=== PATIENT | male | born 1955 | race Caucasian/White ===

== ENCOUNTER → 2018-12-21 11:34 | Outpatient (CLI) | payer SELFPAY ==
[2014-05-11 07:48] VITALS: BMI 26.9
--- NOTE | 2018-12-21 11:40 | RAD_ITS ---
HISTORY: Pain EXAM:XR Chest 2 Views: COMPARISON: None FINDINGS: Normal heart size. Hyperinflation compatible with COPD and upper lobe emphysema, more so on the right no vascular congestion, pleural effusion, or acute pulmonary infiltration. Atherosclerotic thoracic aorta. No pneumothorax. Senescent changes of the dorsal spine RAD/Chest PA and Lateral IMPRESSION: 1. No acute cardiopulmonary disease. 2. COPD and emphysema. at 0342 Reported and signed by: Nawaf Miller MD Electronically Signed: Nawaf Miller, at 3:41 EST Tel , Service support ,
[2018-12-21 14:05] LABS: Hematocrit 43.6 % (40-54); Hemoglobin 14.3 g/dl (13.0-16.5); Mean Corp Hgb Conc 32.8 g/gl (32-36); Mean Corpuscular Hgb 31.2 pg (27.0-32.0); Mean Corpuscular Volume 95.2 fL (80-94); Mean Platelet Vol. 10.6 fl (6.2-12.0); Platelet Count 189 K/mm3 (150-450); RBC Distribution Width CV 13.6 % (11.6-14.6); RBC Distribution Width SD 45.7 fl (35.1-43.9); Red Blood Count 4.58 M/mm3 (4.6-6.2); White Blood Count 4.2 K/mm3 (4.4-11.0)
[2018-12-21 14:07] LABS: Scan Indicated on CBC? Y/N NO
[2018-12-21 14:22] LABS: Anion Gap 4 (5-15); BUN 14 mg/dL (7-18); BUN/Creat Ratio 13.3 RATIO (10-20); Calcium,Total 8.6 mg/dL (8.5-10.1); Chloride 108 mmol/L (98-107); Creatinine, Serum 1.05 mg/dL (0.70-1.30); EST Glomerular Filtration Rate 76 mL/min (>60); Est Glom Filt Rate - Afr Amer 92 mL/min (>60); Glucose 89 mg/dL (74-106); PSA,Total - Annual Screen 0.14 ng/mL (0.00-4.00); Potassium 4.4 mmol/L (3.5-5.1); Sodium Level 140 mmol/L (136-145)
--- OUTSIDE RECORDS SUMMARY | 2019-02-22 15:33 | XMS RPT_ITS ---
:1955 Author Organization OHIP Care Team Providers Name Role Phone YANG FLORES (SENIOR CATERING SALES MANAGER) Referring Unavailable YANG FLORES (CRESCENCIO) Attending Unavailable YANG FLORES (CRESCENCIO) Referring Unavailable Uziel Mtz Attending Unavailable Uziel Mtz Referring Unavailable Uziel Mtz Primary Care Unavailable PROBLEMS PROBLEMS DATE TYPE CONDITION / CODE ATTENDING STATUS SOURCE 12/21/2018 Unknown 786.50 - Chest Ranney, Active [place] pain, unspecified [facility] / 786.50(ICD-9) Hospital Repository 12/21/2018 Unknown R07.9 - Chest Ranney, Active [place] pain, unspecified [facility] / R07.9(ICD-10) Hospital Repository 01/15/2016 Active Other lymphoid NA Active [facility] leukemia not [facility] [place] having achieved Repository remission / C91.Z0(ICD-10) PROCEDURES PROCEDURES No Procedure Records FoundRESULTS RESULTS CBC-COMPLETE BLOOD CNT Collected: 12/21/2018 Status: F Source: [place] NO DIFF 11:45 AM [facility] REPOSITORY TYPE CODE TESTS RESULT OUT OF RANGE REFERENCE UNITS LAB L100.1000 4.4-11.0 K/mm3 Low WBC 4.2 LAB L100.1200 4.6-6.2 M/mm3 Low RBC 4.58 LAB L100.1300 13.0-16.5 g/dl Normal HGB 14.3 LAB L100.1400 40-54 % Normal HCT 43.6 LAB L100.1500 80-94 fL High MCV 95.2 LAB L100.1600 27.0-32.0 pg Normal MCH 31.2 LAB L100.1700 32-36 g/gl Normal MCHC 32.8 LAB L100.1810 11.6-14.6 % Normal RDW CV 13.6 LAB L100.1820 35.1-43.9 fl High RDW SD 45.7 LAB L100.1900 150-450 K/mm3 Normal PLT 189 LAB L100.2000 6.2-12.0 fl Normal MPV 10.6 Performed By: #### L100.0500, L500.2500 #### [facility] [address] [place], [place], [id number] BASIC METABOLIC Collected: 12/21/2018 Status: F Source: [place] PROFILE (BMP) 11:45 AM [facility] REPOSITORY TYPE CODE TESTS RESULT OUT OF RANGE REFERENCE UNITS LAB L501.0100 74-106 mg/dL Normal GLU 89 Result Comment: Please note revised GLUCOSE reference range effective 2018. LAB L501.1000 7-18 mg/dL Normal BUN 14 LAB L501.1100 0.70-1.30 mg/dL Normal CREAT,SERUM 1.05 Result Comment: The validity of the calculated GFR AND GFRAA in patients over 70 years has not been determined. Clinical correlation is essential. LAB L501.1110 >60 mL/min Normal EST GFR 76 Result Comment: Non- GFR Calc LAB L501.1115 >60 mL/min Normal EST GFR - AA 92 Result Comment: GFR Calc LAB L501.1300 10-20 RATIO Normal BUN/CRE 13.3 LAB L501.2200 8.5-10.1 mg/dL CA Normal 8.6 LAB L501.5300 136-145 mmol/L NA Normal 140 LAB L501.5600 3.5-5.1 mmol/L K Normal 4.4 LAB L501.5900 98-107 mmol/L High CL 108 LAB L501.6100 21.0-32.0 mmol/L Normal CO2 28.0 LAB L501.6200 5-15 Low GAP 4 Performed By: #### L100.0500, L500.2500 #### [facility] [address] [place], [place], [address] PSA,TOTAL - ANNUAL Collected: 12/21/2018 Status: F Source: [place] SCREEN 11:45 AM [facility] REPOSITORY TYPE CODE TESTS RESULT OUT OF RANGE REFERENCE UNITS LAB L501.9910 0.00-4.00 ng/mL Normal PSA,TOT 0.14 SCREEN Result Comment: This test was performed using the TPSA assay method for the KLab chemistry system. Values obtained with different assay methods cannot be used interchangably. When changing PSA assays in the course of monitoring a patient, additional sequential testing should be carried out to confirm baseline values. Performed By: #### L501.9910 #### [facility] [address] [place], [address] CHEST PA AND LATERAL Observed: 12/21/2018 Status: F Source: [place] 11:40 AM [facility] REPOSITORY [facility] Imaging Services [address] [place] [address] Chest PA and Lateral MR#: [id number] Acct: [id number] Name: JESSIKA MIRAMONTES Rep #: [id number] : 1955 M 63 From: Nawaf Miller MD PCP: Uziel Mtz MD Status: REG CLI Study: Chest PA and Lateral Date of Exam: 12/21/18 Exam# [id number] Ordering Dr: Obed Mtz MD HISTORY: Pain EXAM:XR Chest 2 Views: COMPARISON: None FINDINGS: Normal heart size. Hyperinflation compatible with COPD and upper lobe emphysema, more so on the right no vascular congestion, pleural effusion, or acute pulmonary infiltration. Atherosclerotic thoracic aorta. No pneumothorax. Senescent changes of the dorsal spine RAD/Chest PA and Lateral IMPRESSION: 1. No acute cardiopulmonary disease. 2. COPD and emphysema. at 0342 Reported and signed by: Nawaf Miller MD Electronically Signed: Nawaf Miller, at 3:41 EST Tel , Service support , CC: Uziel Mtz MD Field Care Advocate: Signed PROGRESS Observed: 02/18/2018 Status: COMPLETED Source: [place] 12:11 PM [facility] REPOSITORY HNO ID: [id number] Author: Yang Hodge) MARCELLO Flores.CRESCENCIO Service: (none) Author Type: Nurse Practitioner Type: Progress Notes Filed: 02/18/2018 12:56 PM Note Text: Chief Complaint Patient presents with: Established Patient HPI: Jessika Miramontes is a 62 year old male who presents here today for follow up indolent NK-cell LGL leukemia. H/o pt. was evaluated for unexplained anemia and mild neutropenia in 2007. Flow cytometry of the bone marrow identified a population of NK cells. Because of this and the other workup excluding other causes, the patient was deemed to have an LGL leukemia. ?? Previous therapy: Parenteral iron. None for LGL. ? No complaints. ?? Appetite:too good Energy level:pretty good. Denies fever, chills or night sweats. Denies recent illness. Resp:denies cough/sob Cardiac:denies chest pain/palpitations GI:denies abd pain, n/v, moving bowels regularly :denies dysuria/hematuria Extrem:denies pain my back is fantastic. Neuro:3 toes numb s/p back surgery-stable. Skin:denies rashes/lesions Heme:denies bleeding The ROS is otherwise negative. Past medical history, appointments, medications, allergies reviewed. No changes. EXAM: BP 147/74 Pulse 96 Temp 36.3 ?C (97.4 ?F) Wt 83.9 kg (185 lb) BMI 26.54 kg/m2 APPEARANCE Well appearing, alert, in no acute distress, well-hydrated, well nourished. HEART RRR with normal S1 and S2, no murmurs LUNG clear to auscultation LYMPH NODES No cervical lymphadenopathy, No supraclavicular lymphadenopathy and No axillary lymphadenopathy. ABDOMEN bowel sounds normoactive, no bruits, soft, non-tender, non-distended, without organomegaly or palpable masses EXTREMITIES No edema NEURO Awake, alert and oriented x 3, Normal gait and No involuntary motions. SKIN Skin color, texture, turgor normal, no suspicious rashes or lesions LABS: Component Latest Ref Rng AND Units 07/18/2015 01/15/2016 01/20/2017 02/16/2018 WBC, [place] 3.70 - 11.00 k/uL 4.69 4.53 4.55 4.45 RBC, [place] 4.20 - 6.00 m/uL 4.40 4.18 (L) 4.18 (L) 4.22 Hemoglobin, [place] 13.0 - 17.0 g/dL 13.9 13.3 13.4 13.5 Hematocrit, [place] 39.0 - 51.0 % 41.2 39.9 39.9 40.4 MCV, [place] 80.0 - 100.0 fL 93.6 95.5 95.5 95.7 MCH, [place] 26.0 - 34.0 pg 31.6 31.8 32.1 32.0 MCHC, [place] 30.5 - 36.0 g/dL 33.7 33.3 33.6 33.4 RDW, [place] 11.5 - 15.0 % 13.6 13.6 13.3 13.6 Platelet Cnt, [place] 150 - 400 k/uL 173 175 180 214 MPV, [place] 9.0 - 12.7 fL 9.5 10.0 10.2 9.7 Neut%, [place] % 43.5 44.1 40.6 42.2 Lymp%, [place] % 43.5 41.1 46.2 43.4 Pocahontas%, [place] % 10.0 11.5 10.3 12.4 Eos%, [place] % 2.6 2.9 2.2 1.3 Baso%, [place] % 0.4 0.4 0.7 0.7 Abs Neut, [place] 1.45 - 7.50 k/uL 2.04 2.00 1.85 1.88 Abs Lymp, [place] 1.00 - 4.00 k/uL 2.04 1.86 2.10 1.93 Abs Pocahontas, [place] <0.87 k/uL 0.47 0.52 0.47 0.55 Abs Eos, [place] <0.46 k/uL 0.12 0.13 0.10 0.06 Abs Baso, [place] <0.11 k/uL 0.02 0.02 0.03 0.03 ASSESSMENT/PLAN: 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 - Reviewed labs with pt. - Follow up in one year with CBC/diff. - Pt. aware to call office with any questions/concerns. The patient indicates understanding of these issues and agrees with the plan. [place] Nilsa Flores APRN.CNP CNOVSP Observed: 02/18/2018 Status: COMPLETED Source: [place] 12:[address] [facility] REPOSITORY Visit (SP) Office (SONNY) JESSIKA MIRAMONTES ([id number]) 1955 M Date Time Provider Department 02/18/18 12:00 PM YANG FLORES (CRESCENCIO) SONNY During your visit today, we recorded the following information about you: Temperature Pulse Blood pressure Weight 97.4 degrees 96/minute 147/74 83.9 kg Amanda Platt LPN, LPN 02/18/2018 12:20 PM Signed Est pt, discuss recent lab results 1 year f/u DEV Stubbs APRN.SHENG PRATHER 02/18/2018 12:56 PM Signed Chief Complaint Patient presents with: Established Patient HPI: Jessika Miramontes is a 62 year old male who presents here today for follow up indolent NK-cell LGL leukemia. H/o pt. was evaluated for unexplained anemia and mild neutropenia in 2007. Flow cytometry of the bone marrow identified a population of NK cells. Because of this and the other workup excluding other causes, the patient was deemed to have an LGL leukemia. ?? Previous therapy: Parenteral iron. None for LGL. ? No complaints. ?? Appetite:ANDquot;too goodANDquot; Energy level:ANDquot;pretty good.ANDquot; Denies fever, chills or night sweats. Denies recent illness. Resp:denies cough/sob Cardiac:denies chest pain/palpitations GI:denies abd pain, n/v, moving bowels regularly :denies dysuria/hematuria Extrem:denies pain ANDquot;my back is fantastic.ANDquot; Neuro:3 toes numb s/p back surgery-stable. Skin:denies rashes/lesions Heme:denies bleeding The ROS is otherwise negative. Past medical history, appointments, medications, allergies reviewed. No changes. EXAM: BP 147/74 Pulse 96 Temp 36.3 ?C (97.4 ?F) Wt 83.9 kg (185 lb) BMI 26.54 kg/m2 APPEARANCE Well appearing, alert, in no acute distress, well- hydrated, well nourished. HEART RRR with normal S1 and S2, no murmurs LUNG clear to auscultation LYMPH NODES No cervical lymphadenopathy, No supraclavicular lymphadenopathy and No axillary lymphadenopathy. ABDOMEN bowel sounds normoactive, no bruits, soft, non-tender, non-distended, without organomegaly or palpable masses EXTREMITIES No edema NEURO Awake, alert and oriented x 3, Normal gait and No involuntary motions. SKIN Skin color, texture, turgor normal, no suspicious rashes or lesions LABS: Component Latest Ref Rng ANDamp; Units 07/18/2015 01/15/2016 01/20/2017 02/16/2018 WBC, [place] 3.70 - 11.00 k/uL 4.69 4.53 4.55 4.45 RBC, [place] 4.20 - 6.00 m/uL 4.40 4.18 (L) 4.18 (L) 4.22 Hemoglobin, [place] 13.0 - 17.0 g/dL 13.9 13.3 13.4 13.5 Hematocrit, [place] 39.0 - 51.0 % 41.2 39.9 39.9 40.4 MCV, [place] 80.0 - 100.0 fL 93.6 95.5 95.5 95.7 MCH, [place] 26.0 - 34.0 pg 31.6 31.8 32.1 32.0 MCHC, [place] 30.5 - 36.0 g/dL 33.7 33.3 33.6 33.4 RDW, [place] 11.5 - 15.0 % 13.6 13.6 13.3 13.6 Platelet Cnt, [place] 150 - 400 k/uL 173 175 180 214 MPV, [place] 9.0 - 12.7 fL 9.5 10.0 10.2 9.7 Neut%, [place] % 43.5 44.1 40.6 42.2 Lymp%, [place] % 43.5 41.1 46.2 43.4 Pocahontas%, [place] % 10.0 11.5 10.3 12.4 Eos%, [place] % 2.6 2.9 2.2 1.3 Baso%, [place] % 0.4 0.4 0.7 0.7 Abs Neut, [place] 1.45 - 7.50 k/uL 2.04 2.00 1.85 1.88 Abs Lymp, [place] 1.00 - 4.00 k/uL 2.04 1.86 2.10 1.93 Abs Pocahontas, [place] ANDlt;0.87 k/uL 0.47 0.52 0.47 0.55 Abs Eos, [place] ANDlt;0.46 k/uL 0.12 0.13 0.10 0.06 Abs Baso, [place] ANDlt;0.11 k/uL 0.02 0.02 0.03 0.03 ASSESSMENT/PLAN: 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 - Reviewed labs with pt. - Follow up in one year with CBC/diff. - Pt. aware to call office with any questions/concerns. The patient indicates understanding of these issues and agrees with the plan. Yang Flores APRN.CRESCENCIO Referring Provider: YANG FLORES ([facility]) [[id number]] Allergies As of Date: 02/18/2018 (No Known Allergies) Date Reviewed: 02/18/2018 Reviewed by: Yang ([facility]) MARCELLO Flores.SENIOR CATERING SALES MANAGER - Fully Assessed Reason for Visit: Established Patient [175] Primary Visit Diagnosis:Large granular lymphocytic leukemia (HCC) [C91.Z0] Follow-up and Disposition History Recorded Prescriptions as of 02/18/2018 Sig: IBUPROFEN 200 MG TABLET Take 600 mg by mouth as neede* * THERAPEUTIC MULTIVITAMIN TABL* Take one(1) tablet daily. Medication notes this encounter [id number] ([facility]) >> Amanda Platt LPN, LPN 02/18/2018 12:10 PM >> AMANDA PLATT Feb 18, 2018 12:10 PM Hasn't used in along time Problem List As Of Date 02/18/2018 Noted Resolved ANEMIA NOS [D64.9] INVALID FOR* LARGE CELL LYMPH XTRNDL [C85.89] INVALID FOR* DYSPHAGIA NOS [R13.10] INVALID FOR* IRON DEFIC ANEMIA NOS [D50.9] INVALID FOR* Large granular lymphocytic leukemia (HCC) [C91.*INVALID FOR* Anemia [D64.9] Family history of colon cancer [Z80.0] INVALID FOR*08/14/2016 Visit Notes: >> Amanda Burleson (Dev) DEV Platt Michelle Feb 18, 2018 12:11 PM Status: Signed Est pt, discuss recent lab results 1 year f/u Amanda Platt LPN Encounter Status:Closed by YANG FLORES CNP on 02/18/18 [place] CBC AND DIFF Collected: 02/16/2018 Status: F Source: [place] 10:20 AM [facility] REPOSITORY TYPE CODE TESTS RESULT OUT OF REFERENCE UNITS RANGE LAB WWBC 3.70-11.00 k/uL [place] WBC 4.45 LAB WRBC 4.20-6.00 m/uL [place] RBC 4.22 LAB WHGB 13.0-17.0 g/dL [place] Hemoglobin 13.5 LAB WHCT 39.0-51.0 % [place] Hematocrit 40.4 LAB WMCV 80.0-100.0 fL [place] MCV 95.7 LAB WMCH 26.0-34.0 pg [place] MCH 32.0 LAB WMCHC 30.5-36.0 g/dL [place] MCHC 33.4 LAB WRDW 11.5-15.0 % [place] RDW 13.6 LAB WPLT 150-400 k/uL [place] Platelet Cnt 214 LAB WMPV 9.0-12.7 fL [place] MPV 9.7 Result Comment: Test performed at: [facility] [place], [address], [address] [facility] [address] [place] [address]. LAB WNEUT % [place] Neut% 42.2 LAB WLYMP % [place] Lymp% 43.4 LAB WMONOC % [place] Pocahontas% 12.4 LAB WEOS % [place] Eos% 1.3 LAB WBASO % [place] Baso% 0.7 LAB WANEUT 1.45-7.50 k/uL [place] Abs Neut 1.88 LAB WALYMP 1.00-4.00 k/uL [place] Abs Lymp 1.93 LAB WAMONO <0.87 k/uL [place] Abs Pocahontas 0.55 LAB WAEOS <0.46 k/uL [place] Abs Eos 0.06 LAB WABASO <0.11 k/uL [place] Abs Baso 0.03 ALLERGIES ALLERGIES DATE TYPE / CODE NAME / CODE REACTION SEVERITY SOURCE 05/09/2014 Drug No Known Unknown [facility] Allergy/416 Allergies/H46995 Hospital 188245(SNOM 0388(RXNORM) Repository ED CT) Drug NO KNOWN [facility] Class/72798 ALLERGIES [facility] 1003(SNOMED Repository CT) ENCOUNTERS ENCOUNTERS ADMIT/DISCHARGE ACCOUNT ADMITTING ENCOUNTER LOCATION SOURCE NUMBER CLASS 12/21/2018 [id number] [facility] ing:MTLAB Repository 02/18/2018/02/20/20 [id number] Ambulatory [address] [facility] [place] Repository 02/16/2018 [id number] Ambulatory [facility] Repository PAYERS PAYERS ENCOUNTER GUARANTOR PAYER SUBSCRIBER SOURCE 12/21/2018 [id number] Insurance:SELF PAY [place], [place] Number: Effective Repository [phone]: 330) Date:2018-12-21 [phone] ()
== END ==
PROVIDERS: Family Provider Family Medicine; PCP Family Medicine; Referring Provider Family Medicine; Visit Provider Family Medicine
DX: R07.9 Chest pain, unspecified (principal); Z12.5 Encounter for screening for malignant neoplasm of prostate
CPT/HCPCS: 36415; 71046; 80048; 84153; 85027; G0103

== ENCOUNTER → 2020-02-09 10:46 | Outpatient (CLI) | payer SELFPAY ==
[2014-05-11 07:48] VITALS: BMI 26.9
[2020-02-09 13:04] LABS: PSA,Total - Annual Screen 0.15 ng/mL (0.00-4.00)
== END ==
PROVIDERS: PCP Family Medicine; Referring Provider Urology; Visit Provider Urology
DX: Z12.5 Encounter for screening for malignant neoplasm of prostate (principal)
CPT/HCPCS: 36415; 84153; G0103

== ENCOUNTER → 2020-02-15 16:37 | Outpatient (CLI) | payer SELFPAY ==
[2014-05-11 07:48] VITALS: BMI 26.9
[2020-02-15 17:36] LABS: Hematocrit 40.4 % (40-54); Hemoglobin 13.4 g/dL (13.0-16.5); Mean Corp Hgb Conc 33.2 g/dL (32-36); Mean Corpuscular Hgb 32.1 pg (27.0-32.0); Mean Corpuscular Volume 96.9 fL (80-94); Mean Platelet Vol. 10.9 fl (6.2-12.0); Platelet Count 173 K/mm3 (150-450); RBC Distribution Width CV 13.2 % (11.6-14.6); RBC Distribution Width SD 46.7 fl (35.1-43.9); Red Blood Count 4.17 M/mm3 (4.6-6.2)
[2020-02-15 18:01] LABS: Anion Gap 4 (5-15); BUN 21 mg/dL (7-18); BUN/Creat Ratio 19.1 RATIO (10-20); Calcium,Total 8.4 mg/dL (8.5-10.1); Chloride 106 mmol/L (98-107); EST Glomerular Filtration Rate 72 mL/min (>60); Est Glom Filt Rate - Afr Amer 87 mL/min (>60); Glucose 85 mg/dL (74-106); Magnesium 2.1 mg/dL (1.6-2.6); Sodium Level 138 mmol/L (136-145); Thyroid Stim Hormone (TSH) 2.16 uIU/mL (0.358-3.74)
== END ==
PROVIDERS: PCP Family Medicine; Referring Provider Family Medicine; Visit Provider Family Medicine
DX: R00.2 Palpitations (principal)
CPT/HCPCS: 36415; 80048; 83735; 84443; 85027

== ENCOUNTER → 2021-02-19 10:20 | Outpatient (CLI) | payer MEDICARE, SELFPAY ==
[2014-05-11 07:48] VITALS: BMI 26.9
[2021-02-19 12:16] LABS: PSA,Total - Annual Screen 0.14 ng/mL (0.00-4.00)
== END ==
PROVIDERS: PCP Family Medicine; Referring Provider Urology; Visit Provider Urology
DX: Z12.5 Encounter for screening for malignant neoplasm of prostate (principal)
CPT/HCPCS: 36415; 84153; G0103

== ENCOUNTER 2021-08-27 17:35 | Outpatient (CLI) | payer MEDICARE, SELFPAY ==
[2021-08-27 18:01] VITALS: BP 148/61; PULSE 92; RESP 16; TEMP 36.8; O2SAT 97; BMI 26.5
[2021-08-27] MEDS: 0.9% Saline Lock 10 ML Syringe IV (18:06)
[2021-08-27 18:50] VITALS: BP 126/61; PULSE 75; RESP 16; TEMP 37; O2SAT 98
[2021-08-27 19:50] VITALS: BP 119/61; PULSE 84; RESP 16; TEMP 36.7; O2SAT 98
== END 2021-08-27 19:56 | disposition home or self-care (01) ==
LOC: MS3OUT 17:36 → MS3 17:37
PROVIDERS: PCP Family Medicine; Referring Provider Nurse Practitioner Adult Health; Visit Provider Nurse Practitioner Adult Health
DX: Z23 Encounter for immunization (principal); U07.1 COVID-19
CPT/HCPCS: J7050; M0243; A4216; Q0244

== ENCOUNTER 2022-01-07 08:47 | Day surgery (SDC) | payer MEDICARE, SELFPAY ==
[2022-01-07] VITALS (7 sets, daily range): BP systolic 102–132; BP diastolic 60–75; PULSE 57–74; RESP 16; TEMP 36.2–36.7; O2SAT 97–100; BMI 25.5
[2022-01-07] MEDS: Lactated Ringers 1,000 ML 15 ML IV (09:16)
--- NOTE | 2022-01-07 09:55 | H&P.OPEN ---
HPI - General HPI Narrative BRADY MIRAMONTES, is a 66 M who presents for surveillance colonoscopy. Patient has a history of colon cancer in his sister at age under 60. Patient also has a history of colon polyps. Patient denies any abdominal pain or blood in stool. His last colonoscopy was 5 years ago. [facility] Medical History (Updated 01/07/22 @ 09:[address] Dalton Morton MD) Anemia Back pain Easy bruising History of renal disease History of rheumatic fever History of stress test Hx of mitral valve prolapse Leg cramps Non-smoker Wears glasses Home Medications cholecalciferol (vitamin D3) [Vitamin D3] 25 mcg PO DAILY 01/02/22 [History Last Taken Unknown] multivitamin 1 cap PO DAILY 01/02/22 [History Last Taken Unknown] zinc 50 mg PO DAILY 01/02/22 [History Last Taken Unknown] Allergy/AdvReac Type Severity Reaction Status Date / Time No Known Allergies Allergy Verified 01/07/22 09:04 Surgical History (Updated 01/02/22 @ 12:50 by Zahra Pgua) History of cystoscopy History of nasal surgery Hx of decompressive lumbar laminectomy Social History Smoking Status: Never smoker Past Medical/Surgical History Planned Operation Planned Operative Procedure/s: OPEN ACCESS CSCOPE S.O.S: No Previous Hospitalizations/Surgeries HX Hospitalizations: No HX of Surgeries: bladder resection back surgery Any Problems With Anesthesia: No You/Your Family Experience Fever (Hyperthermia) With Anes: No Cholinesterase deficiency: No Cardiovascular Hx Chest Pain within Last 2 months: No Hx of Irregular Heartbeat and/or Afib: Yes Hx Heart Attack: No Hx Congestive Heart Failure: No Hx Rheumatic Fever: No Hx Hypertension: No Hx Internal Defibrillator: No Hx Pacemaker: No Hx Cardiac Catheterization: No Hx Cardiac Surgery/Stents/Etc.: No Hx Stress Test: No Hx Pain in Legs when Walking/Leg Cramps: No Respiratory Chronic Cough: No HX of Shortness of Breath: No Hoarseness: No Hx Chronic Obstructive Pulmonary Disease (COPD): No Hx Asthma: No Hx Emphysema: No Hx Sleep Apnea: No CPAP: No BIPAP: No Hx Respiratory Tract Infection/Cold (presently): No Do You Snore Loudly (louder than talking or can be heard): Yes Do You Often Feel Tired/ Fatigued/ Sleepy Dring Daytime?: No Has Anyone Observed You Stop Breathing During Sleep?: No Result (for STOP score): Negative Hx Smoking: No Smoking Status: Never smoker Gastrointestinal Hx Gastroesophageal Reflux: No Hx Gastrointestinal Disorders: No Hx Gastrointestinal Bleed: No Hx Ulcer: No Hx Hiatal Hernia: No Difficulty Chewing/Swallowing: No Special diet followed at home: No Hx Unplanned Weight Loss of 20#: No HX Unplanned Weight Gain of 20#: No Neurological Hx Seizures: No HX Syncope/Blackout Spells/Unconsciousness: No Hx Transient Ischemic Attacks (TIA): No Hx Multiple Sclerosis: No Hx Parkinson's Disease: No Hx Head/Neck Injury: No Hx Headaches: No Hx Back Injury/Pain: Yes (LOWER BACK PAIN- NONE TODAY) Recent Onset of Speech Difficulty: No Restless Legs: No Does patient have nerve stimulator: No Blood Disorder Hx Leukemia: No Bleeding Tendencies: No Hx Deep Vein Thrombosis: No Hx High Cholesterol: No Blood Transmitted Disease: No Hx Hepatitis: No Hx Cirrhosis: No Hx Anemia: Yes (BORDERLINE- SAW DR GASCA- WAS ON IRON) Hx Blood Disorders: No Reproduction : No Genitourinary Hx Renal Disease: No Hx Dialysis: No Musculoskeletal Hx Arthritis: No Hx Rheumatoid Arthritis: No Hx Gout: No Recent Onset of an Orthopedic Problem: No Endocrine Hx Diabetes: No Thyroid Disease: No Hx Steroid Therapy: No Psycho/Social Hx Substance Use: No Hx Alcohol Use: No Hx Anxiety: No Hx Depression: No Mental Illness: No Hx Dementia: No Miscellaneous Hx Cancer: No Recent Exposure to Contagious Disease: No Hx of C-Diff: No Any Loose Teeth: No Allergies No Known Allergies Allergy (Verified 01/07/22 09:04) Discharge Is Pt Admitted From a Mcfp, or a Mcc: No After D/C, Where Do you Plan to Go: Return Home From the PAT History Number of Risk Factors: 1 Vital Signs Vital Signs Vital Signs: 01/07/22 09:11 Temperature 97.1 F L Temperature Source Temporal Pulse Rate 71 Respiratory Rate 16 Respiratory Pattern Normal Blood Pressure 132/75 H Blood Pressure Mean 94 Blood Pressure Source Monitor Blood Pressure Position Semi-Fowlers Blood Pressure Location Left Arm Pulse Ox 100 Oxygen Delivery Method Room Air Weight Weight: 178 lb 2.136 oz Body Mass Index (BMI) 25.5 Physical Exam Const alert and oriented x3 Resp normal respiratory effort and normal air movement Cardio regular rate and regular rhythm GI soft to palpation, non-tender and non-distended Assessment & Plan Assessment/Plan (1) Encounter for screening for malignant neoplasm of colon: (2) Family history of malignant neoplasm of colon in first degree relative diagnosed when younger than 60 years of age: PLAN: I explained endoscopy in detail to the patient. I explained the risks including but not limited to stroke or heart attack with anesthesia, perforation of the GI tract, bleeding, infection. I explained that any of these could necessitate further emergency surgery. The patient understands and all questions were answered sufficiently. The patient wishes to proceed with procedure. Dalton Morton MD Pager: [facility] [address] [place] [address], [address] [place] [address] Office: Surgery Risks - Colonoscopy Risks Include but are not Limited To: Risks include but are not limited to: Bleeding, perforation requiring further surgery, inability to complete colonoscopy requiring barium enema.
--- NOTE | 2022-01-07 10:00 | COLBX_PTH ---
PATIENT: BRADY MIRAMONTES LOC: EN U#:[id number] AGE/SX: 66/M ROOM: RE01/07/[address]: Dr. Dalton Morton MD : 1955 BED: DIS: 01/07/2022 SPEC #: [id number] RECD: 01/07/22 10:42 STATUS: MELISSA MINORSonia #: [id number] JUANCARLOS: 01/07/22 10:[address]: Dalton Morton DEPT: SURGICAL PATHOLOGY RECD BY: Fatoumata Davalos ENTERED: 01/07/22 11:59 SP TYPE: COLON BX OTHR DR: Dr. Uziel Mtz MD Tissues: Transverse colon Procedures: Surgery Specimen Level IV HEADER OPERATION: Colonoscopy ? open access (MAC) polypectomy PRE-OP DIAGNOSIS: Screening for malignant neoplasm of colon TISSUE SUBMITTED: Distal transverse colon polyp MICROSCOPIC DIAGNOSIS Distal transverse colon polyp, polypectomy: Tubular adenoma. SJ:real 01/08/2022 MICROSCOPIC DESCRIPTION Slides are reviewed. GROSS DESCRIPTION Received in fixative is one container labeled with the patient's name and designated distal transverse colon polyp. The specimen consists of one irregular fragment of light dominguez soft tissue that measures 0.2 x 0.2 x 0.1 cm. The specimen is totally submitted in one cassette. / SJ:real 01/07/2022 TC:1 CPT: 57543
--- NOTE | 2022-01-07 10:27 | OP.COLON_ITS ---
Patient Name: Jessika Nixon Procedure Date: 01/07/2022 9:55 AM Date of : 1955 Age: 66 Procedure: Colonoscopy Indications: High risk colon cancer surveillance: Personal history of colonic polyps, Family history of colon cancer in a first-degree relative Providers: Dalton Mroton MD Referring MD: Dalton Morton MD Medicines: Monitored Anesthesia Care Patient Profile: This is a 66 year old male. Refer to note in patient chart for documentation of history and physical. Last Colonoscopy: 5 years ago. Complications: No immediate complications. Procedure: Pre-Anesthesia Assessment: - Prior to the procedure, a History and Physical was performed, and patient medications and allergies were reviewed. The patient's tolerance of previous anesthesia was also reviewed. The risks and benefits of the procedure and the sedation options and risks were discussed with the patient. All questions were answered, and informed consent was obtained. Prior Anticoagulants: The patient has taken no previous anticoagulant or antiplatelet agents. After reviewing the risks and benefits, the patient was deemed in satisfactory condition to undergo the procedure. After I obtained informed consent, the scope was passed under direct vision. Throughout the procedure, the patient's blood pressure, pulse, and oxygen saturations were monitored continuously. The Colonoscope was introduced through the anus and advanced to the cecum, identified by appendiceal orifice and ileocecal valve. The colonoscopy was performed without difficulty. The patient tolerated the procedure well. The quality of the bowel preparation was good. Scope In: 10:06:59 AM Scope Withdrawal Time 0 hours 5 minutes 29 seconds Scope Out: 10:24:58 AM Total Procedure Duration Time 0 hours 17 minutes 59 seconds Findings: A small polyp was found in the distal transverse colon. The polyp was removed with a hot snare. Resection and retrieval were complete. The exam was otherwise without abnormality on direct and retroflexion views. Impression: - One small polyp in the distal transverse colon, removed with a hot snare. Resected and retrieved. - The examination was otherwise normal on direct and retroflexion views. Recommendation: - Discharge patient to home. - Resume previous diet. - Continue present medications. - Await pathology results. - Repeat colonoscopy in 5 years for surveillance. Procedure Code(s): --- Professional --- 45792, 33, Colonoscopy, flexible; with removal of tumor(s), polyp(s), or other lesion(s) by snare technique Diagnosis Code(s): --- Professional --- Z86.010, Personal history of colonic polyps D12.3, Benign neoplasm of transverse colon (hepatic flexure or splenic flexure) Z80.0, Family history of malignant neoplasm of digestive organs CPT copyright 2017 [employer]. All rights reserved. The codes documented in this report are preliminary and upon veterinary manager review may be revised to meet current compliance requirements. Dalton Morton MD 01/07/2022 10:27:03 AM This report has been signed electronically. Number of Addenda: 0 Note Initiated On: 01/07/2022 9:55 AM
--- NOTE | 2022-01-07 10:28 | OP.CCLET_ITS ---
01/07/2022 Obed Mtz [address] [place] [address] Re : Colonoscopy procedure for Jessika Nixon Dear Dr. Mtz This procedure was performed on Friday, January 07, 2022. My impressions and recommendations are as follows: Impressions : - One small polyp in the distal transverse colon, removed with a hot snare. Resected and retrieved. - The examination was otherwise normal on direct and retroflexion views. Recommendations : - Discharge patient to home. - Resume previous diet. - Continue present medications. - Await pathology results. - Repeat colonoscopy in 5 years for surveillance. My findings are described in the full procedure note, which is enclosed. If I can be of further assistance, please feel free to contact me at Doctor phone number(s): , Work: . Sincerely, Dalton Morton MD 01/07/2022 10:27:03 AM This report has been signed electronically.
== END 2022-01-07 23:59 | disposition home or self-care (01) ==
LOC: EN 08:48 → AC 08:48
PROVIDERS: PCP Family Medicine; Referring Provider Surgery; Visit Provider Surgery
PROC: 0DJD8ZZ Inspection of Lower Intestinal Tract, Via Natural or Artificial Opening Endoscopic (ICD-10-PCS; CPT 45378; principal; 2022-01-07 09:55)
DX: Z12.11 Encounter for screening for malignant neoplasm of colon (principal); D12.3 Benign neoplasm of transverse colon; D64.9 Anemia, unspecified; Z80.0 Family history of malignant neoplasm of digestive organs; Z86.010 Personal history of colon polyps; Z86.16 Personal history of COVID-19; Z79.899 Other long term (current) drug therapy
CPT/HCPCS: 45385; 87426; 88305; C9803; J7120; J2405

== ENCOUNTER 2022-02-26 13:26 | Outpatient (CLI) | payer MEDICARE, SELFPAY ==
[2022-02-26 15:08] LABS: PSA,Total - Annual Screen 0.11 ng/mL (0.00-4.00)
== END 2022-02-26 23:59 | disposition home or self-care (01) ==
LOC: LAB 13:28
PROVIDERS: PCP Family Medicine; Referring Provider Urology; Visit Provider Urology
DX: Z12.5 Encounter for screening for malignant neoplasm of prostate (principal)
CPT/HCPCS: 36415; 84153; G0103

== ENCOUNTER → 2022-12-15 | Outpatient (CLI) | payer MEDICARE, SELFPAY | END | disposition home or self-care (01) | LOC: SL 21:47 | PROVIDERS: PCP Family Medicine; Referring Provider Otolaryngology Otolaryngology/Facial Plastic Surgery; Visit Provider Otolaryngology Otolaryngology/Facial Plastic Surgery | DX: G47.33 Obstructive sleep apnea (adult) (pediatric) (principal) | CPT/HCPCS: 95810 ==

== ENCOUNTER → 2023-12-25 | Outpatient (CLI) | payer MEDICARE, OTHER, SELFPAY ==
--- OUTSIDE RECORDS SUMMARY | 2023-12-25 09:13 | XMS RPT_ITS | CCD ---
Author Name Unknown Address [address] [place] [address] Organization [facility] Care Team Providers Care [employer] Adviser Name Role Phone Max Navarro III Primary Care Provider FARHEEN FLORES Attending Unavailable RAMON FRAGA, MAX RUIZ Referring Unavail able MAX NAVARRO III Primary Care Unavail able FARHEEN FLORES Referring Unavailable RAMON FRAGA, MAX RUIZ Primary Care Unavail able MAX NAVARRO III Primary Care Unavail able FARHEEN FLORES Referring Unavailable Medications Completed/Discontinued Medications Medication Drug Class(es) Dates Sig (Normalized) Sig (Original) ibuprofen 200 mg oral tablet (7 sources) Nonsteroidal Anti-inflammatory Drug End: 07-30-2023 ibuprofen (ADVIL) 200 mg tablet Take 200 mg by mouth as needed. 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] Onset: 01-15-2016 Chronic Non-Hodgkin`s lymphoma (7 sources) Non-Hodgkin's lymphoma (clinical); Translations: [Other specified types of non-Hodgkin lymphoma, extranodal and solid organ sites] Onset: 08-23-2008 08-23-2008 Chronic Past or Other Problems Problem Classification Problem Date Documented Da te Episodic/Chronic Deficiency and other anemia (7 sources) Iron deficiency anemia; Translations: [Iron deficiency anemia, unspecified] Onset: 03-20-2009 03-20-2009 Episodic Deficiency and other anemia (1 source) Anemia, unspecified; Translations: [Anemia, unspecified type] Onset: 07-24-2016 Episodic Other gastrointestinal disorders (7 sources) Dysphagia, unspecified; Translations: [Dysphagia, unspecified] Onset: 08-23-2008 08-23-2008 Episodic Results Test Name Value Interpretation Reference Range Facil ity Vital Signs Date Time Vital Sign Value Performing Clinician Essence salcedo 07-30-2023 09:24-0400 Body height 177 cm Farheen Flores DEPARTMENT SALES MANAGER.BI[employer]IESEL DIVISION MANAGER Work Phone: [facility] 07-30-2023 09:24-0400 Body temperature 97.3 [degF] Farheen Flores DEPARTMENT SALES MANAGER.BIODIESEL DIVISION MANAGER Work Phone: [facility] 07-30-2023 09:24-0400 Body weight 84.37 kg [place] Flores DEPARTMENT SALES MANAGER.BIODIESEL DIVISION MANAGER Work Phone: [facility] 07-30-2023 09:24-0400 Diastolic blood pressure 77 mm[Hg] [place] Flores DEPARTMENT SALES MANAGER.BIODIESEL DIVISION MANAGER Work Phone: [facility] 07-30-2023 09:24-0400 Heart rate 80 /min [place] Flores DEPARTMENT SALES MANAGER.BIODIESEL DIVISION MANAGER Work Phone: [facility] 07-30-2023 09:24-0400 SaO2% (BldA) [Mass fraction] 97 % Farheen Flores DEPARTMENT SALES MANAGER.BIODIESEL DIVISION MANAGER Work Phone: [facility] 07-30-2023 09:24-0400 Systolic blood pressure 135 mm[Hg] [place] Flores DEPARTMENT SALES MANAGER.BIODIESEL DIVISION MANAGER Work Phone: [facility] 07-30-2022 09:32-0400 Body height 176.5 cm Farheen Flores DEPARTMENT SALES MANAGER.BIODIESEL DIVISION MANAGER Work Phone: [facility] 07-30-2022 09:32-0400 Body temperature 96.8 [degF] [place] Flores DEPARTMENT SALES MANAGER.BIODIESEL DIVISION MANAGER Work Phone: [facility] 07-30-2022 09:32-0400 Body weight 81.42 kg [place] Flores DEPARTMENT SALES MANAGER.BIODIESEL DIVISION MANAGER Work Phone: [facility] 07-30-2022 09:32-0400 Diastolic blood pressure 72 mm[Hg] Afrheen Flores DEPARTMENT SALES MANAGER.BIODIESEL DIVISION MANAGER Work Phone: [facility] 07-30-2022 09:32-0400 Heart rate 81 /min Farheen Flores DEPARTMENT SALES MANAGER.BIODIESEL DIVISION MANAGER Work Phone: [facility] 07-30-2022 09:32-0400 Systolic blood pressure 122 mm[Hg] Farheen Flores DEPARTMENT SALES MANAGER.BIODIESEL DIVISION MANAGER Work Phone: [facility] Encounters Encounter Date Encounter Type Care Provider Facility Start: 07-30-2023 End: 07-30-2023 ambulatory FARHEEN BONILLAENTER Facility:[facility] Start: 07-30-2023 End: 07-30-2023 ambulatory Farheen Flores DEPARTMENT SALES MANAGER.BIODIESEL DIVISION MANAGER Work Phone: Hematology/Oncology Procedures Date Procedure Procedure Detail Performing Clinician Start: 07-09-2021 Adult depression scr eening assessment Farheen Flores DEPARTMENT SALES MANAGER.BIODIESEL DIVISION MANAGER Work Phone: Start: 08-14-2016 Colonoscopy Farheen harley DEPARTMENT SALES MANAGER.BIODIESEL DIVISION MANAGER Work Phone: Plan of Treatment Date Care Activity Detail Author Start: 02-17-2026 DIABETES SCREEN DIABETES SCREEN [facility] Start: 07-10-2024 DIABETES SCREEN DIABETES SCREEN [facility] Start: 07-31-2023 Influenza vaccination INFLUENZA (#1) [facility] Start: 11-30-2022 ADVANCE DIRECTIVE DISCUSSION ADVANCE DIRECTIVE DISCUSSION [facility] Start: 11-30-2022 DEPRESSION ASSESSMENT DEPRESSION ASSESSMENT [facility] Start: 11-18-2022 End: 01-18-2023 CBC W Auto Differential panel - Blood CBC + DIFF Lab STAT Large granular lymphocytic leukemia (HCC) Anemia, unspecified type Expected: 11/18/2022, Expires: 01/18/2023 [facility] Work Phone: Immunizations Immunization Date Immunization Notes Care Provider Yareli slade 12-01-2007 tetanus and diphther ia toxoids, adsorbed, preservative free, for adult use (2 Lf of tetanus toxoid and 2 Lf of diphtheria toxoid) Farheen Flores DEPARTMENT SALES MANAGER.BIODIESEL DIVISION MANAGER Work Phone: [facility] Work Phone: Payers Date Payer Category Payer Medicare MEDICARE MEDICAR E A AND B [id number] 2020-Present [phone] [place] [address] Medicare [id number] 2020 Medicare [id number] Social History Date Type Detail Facility Start: 07-08-2011 Tobacco smoking stat us NHIS Never smoked tobacco [facility] Start: 07-08-2011 Tobacco use and exposure Smokeless tobacco non-user [facility] Start: 07-09-2021 End: 07-30-2023 Alcohol intake Current non-drinker of alcohol (finding) [facility] Start: 1955 Sex Assigned At Not on file [facility] Start: 07-06-2022 End: 07-16-2022 Exposure to SARS-CoV-2 (event) Not sure [facility] Work Phone: Start: 07-29-2023 End: 07-30-2023 History of Social function [facility] Start: 07-29-2023 End: 07-30-2023 Tobacco use panel [facility] Adult Depression Screening Assessment 0 [facility] Clinical Notes 08-14-2016 to 07-30-2023 Farheen Flores APRN.BIODIESEL DIVISION MANAGER - 07/30/2023 9:18 AM EDTTelephone Encounter - Bebe Beck - 08/11/2022 1:50 PM EDTTelephone Encounter - Amanda Millan LPN - 08/11/2022 1:28 PM EDT Note Date & Type Note Facility 07-30-2023 Note HNO ID: [id number] Author: Farheen Flores APRN.BIODIESEL DIVISION MANAGER Service: ? 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 Per Dr. Pinedo's previous note: H/o pt. was evaluated for unexplained anemia and mild neutropenia in 2007. Flow cytometry of the bone marrow identified a population of NK cells. Because of this and the other workup excluding other causes, the patient was deemed to have an LGL leukemia. Previous therapy: Parenteral iron. None for LGL. No new concerns today. Appetite: Too good. Energy level: Good. I wish I had a little more. Hospitalized for covid while on vacation in [place]. Resp:denies cough or sob Cardiac:denies chest pain/palpitations GI:denies abd pain, n/v, moving bowels regularly :denies dysuria/hematuria Extrem:denies pain Neuro:3 toes numb s/p back surgery-stable. Skin:denies rashes/lesions Heme:denies bleeding The ROS is otherwise negative. Past medical history, appointments, medications, allergies reviewed. No changes. EXAM: BP 135/77 Pulse 80 Temp 36.3 ?C (97.3 ?F) Ht 177 cm (5' 9.69 ) Wt 84.4 kg (186 lb) SpO2 97% BMI 26.93 kg/m? APPEARANCE Well appearing, alert, in no acute distress, well-hydrated, well nourished. HEART RRR with normal S1 and S2, no murmurs LUNG clear to auscultation LYMPH NODES No cervical lymphadenopathy, No supraclavicular lymphadenopathy, and No axillary lymphadenopathy. ABDOMEN bowel sounds normoactive, soft, non-tender EXTREMITIES No edema NEURO Awake, alert and oriented x 3, Normal gait, and No involuntary motions. SKIN Skin color, texture, turgor normal, no suspicious rashes or lesions LABS: Component Latest Ref Rng AND Units 09/18/2021 07/29/2022 11/18/2022 07/29/2023 WBC 3.70 - 11.00 k/uL 3.92 3.63 (L) 4.27 4.36 RBC 4.20 - 6.00 m/uL 3.33 (L) 3.62 (L) 3.79 (L) 3.96 (L) Hemoglobin 13.0 - 17.0 g/dL 11.0 (L) 12.3 (L) 12.8 (L) 12.8 (L) Hematocrit 39.0 - 51.0 % 32.6 (L) 36.1 (L) 37.4 (L) 38.0 (L) MCV 80.0 - 100.0 fL 97.9 99.7 98.7 96.0 MCH 26.0 - 34.0 pg 33.0 34.0 33.8 32.3 MCHC 30.5 - 36.0 g/dL 33.7 34.1 34.2 33.7 RDW-CV 11.5 - 15.0 % 14.6 14.0 14.1 13.9 Platelet Count 150 - 400 k/uL 176 185 205 187 MPV 9.0 - 12.7 fL 9.3 9.7 9.9 10.2 Neut% % 34.1 23.4 28.1 34.4 Abs Neut (ANC) 1.45 - 7.50 k/uL 1.33 (L) 0.85 (L) 1.20 (L) 1.50 Lymph% % 50.8 60.1 57.6 48.6 Abs Lymph 1.00 - 4.00 k/uL 1.99 2.18 2.46 2.12 [place]% % 11.5 11.8 10.3 11.9 Abs [place] <0.87 k/uL 0.45 0.43 0.44 0.52 Eosin% % 2.8 3.3 2.6 3.7 Abs Eosin <0.46 k/uL 0.11 0.12 0.11 0.16 Baso% % 0.8 1.1 1.2 1.4 Abs Baso <0.11 k/uL 0.03 0.04 0.05 0.06 Immature Gran % % 0.3 0.2 0.0 IMMATURE GRANS (ABS) <0.10 k/uL <0.03 <0.03 <0.03 NRBC /100 WBC 0.0 0.0 0.0 Absolute nRBC <0.01 k/uL <0.01 <0.01 <0.01 <0.01 DTYPE Auto Auto Auto Nucleated Reds 0 /100 WBC 0.0 Diff Type Auto Diff ASSESSMENT/PLAN: 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 - Reviewed CBC with pt. - CBC/diff in 6 months. - Follow up in one year with CBC/diff. - Pt. aware to call office with any questions/concerns. The patient indicates understanding of these issues and agrees with the plan. All documentation from previous visit of 07/30/22-Dr. Pinedo/myself was copied and pasted, documentation has been reviewed and edited as necessary for today's visit. 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 Per Dr. Pinedo's previous note: H/o pt. was evaluated for unexplained anemia and mild neutropenia in 2007. Flow cytometry of the bone marrow identified a population of NK cells. Because of this and the other workup excluding other causes, the patient was deemed to have an LGL leukemia. Previous therapy: Parenteral iron. None for LGL. No new concerns today. Appetite: Too good. Energy level: Good. I wish I had a little more. Hospitalized for covid while on vacation in [place]. Resp:denies cough or sob Cardiac:denies chest pain/palpitations GI:denies abd pain, n/v, moving bowels regularly :denies dysuria/hematuria Extrem:denies pain Neuro:3 toes numb s/p back surgery-stable. Skin:denies rashes/lesions Heme:denies bleeding The ROS is otherwise negative. Past medical history, appointments, medications, allergies reviewed. No changes. EXAM: BP 135/77 Pulse 80 Temp 36.3 C (97.3 F) Ht 177 cm (5' 9.69 ) Wt 84.4 kg (186 lb) SpO2 97% BMI 26.93 kg/m APPEARANCE Well appearing, alert, in no acute distress, well-hydrated, well nourished. HEART RRR with normal S1 and S2, no murmurs LUNG clear to auscultation LYMPH NODES No cervical lymphadenopathy, No supraclavicular lymphadenopathy, and No axillary lymphadenopathy. ABDOMEN bowel sounds normoactive, soft, non-tender EXTREMITIES No edema NEURO Awake, alert and oriented x 3, Normal gait, and No involuntary motions. SKIN Skin color, texture, turgor normal, no suspicious rashes or lesions LABS: Component Latest Ref Rng & Units 09/18/2021 07/29/2022 11/18/2022 07/29/2023 WBC 3.70 - 11.00 k/uL 3.92 3.63 (L) 4.27 4.36 RBC 4.20 - 6.00 m/uL 3.33 (L) 3.62 (L) 3.79 (L) 3.96 (L) Hemoglobin 13.0 - 17.0 g/dL 11.0 (L) 12.3 (L) 12.8 (L) 12.8 (L) Hematocrit 39.0 - 51.0 % 32.6 (L) 36.1 (L) 37.4 (L) 38.0 (L) MCV 80.0 - 100.0 fL 97.9 99.7 98.7 96.0 MCH 26.0 - 34.0 pg 33.0 34.0 33.8 32.3 MCHC 30.5 - 36.0 g/dL 33.7 34.1 34.2 33.7 RDW-CV 11.5 - 15.0 % 14.6 14.0 14.1 13.9 Platelet Count 150 - 400 k/uL 176 185 205 187 MPV 9.0 - 12.7 fL 9.3 9.7 9.9 10.2 Neut% % 34.1 23.4 28.1 34.4 Abs Neut (ANC) 1.45 - 7.50 k/uL 1.33 (L) 0.85 (L) 1.20 (L) 1.50 Lymph% % 50.8 60.1 57.6 48.6 Abs Lymph 1.00 - 4.00 k/uL 1.99 2.18 2.46 2.12 [place]% % 11.5 11.8 10.3 11.9 Abs [place] <0.87 k/uL 0.45 0.43 0.44 0.52 Eosin% % 2.8 3.3 2.6 3.7 Abs Eosin <0.46 k/uL 0.11 0.12 0.11 0.16 Baso% % 0.8 1.1 1.2 1.4 Abs Baso <0.11 k/uL 0.03 0.04 0.05 0.06 Immature Gran % % 0.3 0.2 0.0 IMMATURE GRANS (ABS) <0.10 k/uL <0.03 <0.03 <0.03 NRBC /100 WBC 0.0 0.0 0.0 Absolute nRBC <0.01 k/uL <0.01 <0.01 <0.01 <0.01 DTYPE Auto Auto Auto Nucleated Reds 0 /100 WBC 0.0 Diff Type Auto Diff ASSESSMENT/PLAN: 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 - Reviewed CBC with pt. - CBC/diff in 6 months. - Follow up in one year with CBC/diff. - Pt. aware to call office with any questions/concerns. The patient indicates understanding of these issues and agrees with the plan. All documentation from previous visit of 07/30/22-Dr. Pinedo/myself was copied and pasted, documentation has been reviewed and edited as necessary for today's visit. Farheen Flores APRN.CRESCENCIO documented in this encounter [facility] 08-11-2022 Miscellaneous Notes Completed. Pt notified of lab results, recheck 11/18@ 10 am PSS please put on schedule.Pt. aware. Amanda Millan LPN Please inform pt. that I reviewed his CBC with Dr. Pinedo. Please check CBC/diff in 3 months. Thank you. Farheen Flores APRN.BIODIESEL DIVISION MANAGER documented in this encounter [facility] 07-30-2022 History of Presen t illness Narrative Study Number: [id number] Study Title: Collection of Blood & Bone Marrow from Normal Volunte[employer] Patients for Research Purposes Consent expiration date 02/17/2023 Spoke with patient at the request of Sravan Pinedo D.O..Treatment plan, including all testing, potential risks/benefits, side effects and management, treatment alternatives, and follow-up explained. Roles of the clinical trial personnel to be involved and the financial responsibilities regarding procedures and medications were discussed. Discussed the importance of effective contraception during and following completion of active therapy for NA. Initial questions were answered and a copy of the informed consent was given to patient with the instructions to read it and call with any additional questions. Contact information for the research nurse was given to the patient. The patient verbalized appropriate understanding of all the aforementioned information presented. 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 Per Dr. Pinedo's previous note: H/o pt. was evaluated for unexplained anemia and mild neutropenia in 2007. Flow cytometry of the bone marrow identified a population of NK cells. Because of this and the other workup excluding other causes, the patient was deemed to have an LGL leukemia. Previous therapy: Parenteral iron. None for LGL. No new concerns today. [facility]. [facility] at [facility]. No concerns per pt. Appetite: Too good. Energy level: Good. I wish I had a little more. Denies fevers or recent illness. Resp:denies cough or sob Cardiac:denies chest pain/palpitations GI:denies abd pain, n/v, moving bowels regularly :denies dysuria/hematuria Extrem:denies pain Neuro:3 toes numb s/p back surgery-stable. Skin:denies rashes/lesions Heme:denies bleeding The ROS is otherwise negative. Past medical history, appointments, medications, allergies reviewed. No changes. EXAM: BP 122/72 Pulse 81 Temp 36 C (96.8 F) (Temporal) Ht 176.5 cm (5' 9.5 ) Wt 81.4 kg (179 lb 8 oz) BMI 26.13 kg/m APPEARANCE Well appearing, alert, in no acute distress, well-hydrated, well nourished. HEART RRR with normal S1 and S2, no murmurs LUNG clear to auscultation LYMPH NODES No cervical lymphadenopathy, No supraclavicular lymphadenopathy, and No axillary lymphadenopathy. ABDOMEN bowel sounds normoactive, soft, non-tender, non-distended, without organomegaly or palpable masses, no tenderness to palpation EXTREMITIES No edema NEURO Awake, alert and oriented x 3, Normal gait, and No involuntary motions. SKIN Skin color, texture, turgor normal, no suspicious rashes or lesions LABS: Component Latest Ref Rng & Units 07/09/2021 09/18/2021 07/29/2022 WBC 3.70 - 11.00 k/uL 3.69 (L) 3.92 3.63 (L) RBC 4.20 - 6.00 m/uL 3.65 (L) 3.33 (L) 3.62 (L) Hemoglobin 13.0 - 17.0 g/dL 12.2 (L) 11.0 (L) 12.3 (L) Hematocrit 39.0 - 51.0 % 35.7 (L) 32.6 (L) 36.1 (L) MCV 80.0 - 100.0 fL 97.8 97.9 99.7 MCH 26.0 - 34.0 pg 33.4 33.0 34.0 MCHC 30.5 - 36.0 g/dL 34.2 33.7 34.1 RDW-CV 11.5 - 15.0 % 14.0 14.6 14.0 Platelet Count 150 - 400 k/uL 184 176 185 MPV 9.0 - 12.7 fL 9.9 9.3 9.7 Neut% % 28.8 34.1 23.4 Abs Neut (ANC) 1.45 - 7.50 k/uL 1.06 (L) 1.33 (L) 0.85 (L) Lymph% % 53.4 50.8 60.1 Abs Lymph 1.00 - 4.00 k/uL 1.97 1.99 2.18 [place]% % 12.7 11.5 11.8 Abs [place] <0.87 k/uL 0.47 0.45 0.43 Eosin% % 4.3 2.8 3.3 Abs Eosin <0.46 k/uL 0.16 0.11 0.12 Baso% % 0.8 0.8 1.1 Abs Baso <0.11 k/uL 0.03 0.03 0.04 Immature Gran % % 0.3 IMMATURE GRANS (ABS) <0.10 k/uL <0.03 NRBC /100 WBC 0.0 Absolute nRBC <0.01 k/uL <0.01 <0.01 <0.01 DTYPE Auto Nucleated Reds 0 /100 WBC 0.0 0.0 Diff Type Auto Diff Auto Diff ASSESSMENT/PLAN: 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 - Reviewed CBC with pt. - Will review CBC with Dr. Pinedo. - Follow up in one year with CBC/diff-pending lab review with Dr. Pinedo. - Pt. aware to call office with any questions/concerns. The patient indicates understanding of these issues and agrees with the plan. All documentation from previous visit of 07/09/21-Dr. Pinedo/myself was copied and pasted, documentation has been reviewed and edited as necessary for today's visit. Farheen Flores APRN.CRESCENCIO documented in this encounter [facility] 07-16-2022 Miscellaneous Notes Spoke with patient and scheduled. Maria Guadalupe Butcher Orders are pending, please sign Amanda Millan LPN Please see note and pend orders. Thank you. Farheen Flores APRN.CNP Patient would like to have his labs done a day prior to his appointment. Would someone call him [phone] when the orders are placed. Daisha Ackerman PSS documented in this encounter [facility] documented as of this encounter (statuses as of 07/16/2022) [facility] History of Past illness Narrative* Problem Noted Date Resolved Date Family history of colon cancer 08/14/2016 0 08/14/2016 documented as of this encounter (statuses as of 07/30/2022) [facility] History of Past illness Narrative* Problem Noted Date Resolved Date Family history of colon cancer 08/14/2016 0 08/14/2016 documented as of this encounter (statuses as of 07/31/2022) [facility] History of Past illness Narrative* Problem Noted Date Resolved Date Family history of colon cancer 08/14/2016 0 08/14/2016 documented as of this encounter (statuses as of 08/11/2022) [facility] History of Past illness Narrative* Problem Noted Date Resolved Date Family history of colon cancer 08/14/2016 0 08/14/2016 documented as of this encounter (statuses as of 11/17/2022) [address] History of Past illness Narrative* Problem Noted Date Resolved Date Family history of colon cancer 08/14/2016 0 08/14/2016 documented as of this encounter (statuses as of 11/17/2022) [address] History of Past illness Narrative* Problem Noted Date Diagnosed Date Resolved Date Family history of colon cancer 08/14/2016 08/14/2016 documented as of this encounter (statuses as of 07/30/2023) [facility] Diagnosis Large granular lymphocytic leukemia (HCC)- Primary Other lymphoid leukemia, without mention of having achieved remission Anemia, unspecified type [facility] Diagnosis Large granular lymphocytic leukemia (HCC)- Primary Other lymphoid leukemia, without mention of having achieved remission [facility] Diagnosis Large granular lymphocytic leukemia (HCC)- Primary Other lymphoid leukemia, without mention of having achieved remission Anemia, unspecified type [facility] Diagnosis Large granular lymphocytic leukemia (HCC)- Primary Other lymphoid leukemia, without mention of having achieved remission documented in this encounter [facility] Summary Purpose Family History No Family History Records Found Advance Directives No Advanced Directives Records Found Additional Source Comments Source Comments (unrecognize d section and content) In the event this informatio n is protected by the Federal Confidentiality of Alcohol and Drug Abuse Patient Records regulations: The Federal rules restrict any use of the information to criminally investigate or prosecute any alcohol or drug abuse patient.[facility] the event this information is protected by the Federal Confidentiality of Alcohol and Drug Abuse Patient Records regulations: The Federal rules restrict any use of the information to criminally investigate or prosecute any alcohol or drug abuse patient.[facility] the event this information is protected by the Federal Confidentiality of Alcohol and Drug Abuse Patient Records regulations: The Federal rules restrict any use of the information to criminally investigate or prosecute any alcohol or drug abuse patient.[facility] the event this information is protected by the Federal Confidentiality of Alcohol and Drug Abuse Patient Records regulations: The Federal rules restrict any use of the information to criminally investigate or prosecute any alcohol or drug abuse patient.[facility] the event this information is protected by the Federal Confidentiality of Alcohol and Drug Abuse Patient Records regulations: The Federal rules restrict any use of the information to criminally investigate or prosecute any alcohol or drug abuse patient.[facility] the event this information is protected by the Federal Confidentiality of Alcohol and Drug Abuse Patient Records regulations: The Federal rules restrict any use of the information to criminally investigate or prosecute any alcohol or drug abuse patient.[facility] the event this information is protected by the Federal Confidentiality of Alcohol and Drug Abuse Patient Records regulations: The Federal rules restrict any use of the information to criminally investigate or prosecute any alcohol or drug abuse patient.[facility] Reason for Visit (unrecogniz ed section and content) Reason Comments Consent [id number] Reason Comments Established Patient Reason Comments Results Care Teams (unrecognized sec tion and content) [employer] Adviser Relationship Specialty Start Date End Date Max Navarro III PCP - General 07/05/08 [employer] Farm Management Adviser Relationship Specialty Start Date End Date Max Navarro III PCP - General 07/05/08 [employer] Farm Management Adviser Relationship Specialty Start Date End Date Max Navarro III PCP [facility] 07/05/08 [employer] Farm Management Adviser Relationship Specialty Start Date End Date Max Navarro III PCP [facility] 07/05/08 Feed And [employer] Relationship Specialty Start Date End Date Max Navarro III PCP [facility] 07/05/08 (unrecognized sect ion and content) No Status Records Found INFORMATION SOURCE (unrecogn ized section and content) FOR RECORDS PERTAINING TO PATIENTS WHO ARE OR HAVE BEEN ENROLLED IN A CHEMICAL DEPENDENCY/SUBSTANCEABUSE PROGRAM, SOME INFORMATION MAY BE OMITTED. This clinical summary was aggregated from multiple sources. Caution should be exercised in using it in the provision of clinical care. This summary normalizes information from multiple sources, and as a consequence, information in this document may materially change the coding, format and clinical context of patient data. In addition, data may be omitted in some cases. CLINICAL DECISIONS SHOULD BE BASED ON THE PRIMARY CLINICAL RECORDS. [facility] provides no warranty or guarantee of the accuracy or completeness of information in this document.
[2023-12-25 10:29] LABS: Anion Gap 2 (5-15); BUN 16 mg/dL (7-18); BUN/Creat Ratio 16.1 RATIO (10-20); Calcium,Total 8.8 mg/dL (8.5-10.1); Chloride 111 mmol/L (98-107); Cholesterol 179 mg/dL (200); Creatinine, Serum 0.99 mg/dL (0.70-1.30); EST Glomerular Filtration Rate 80 mL/min (>60); Est Glom Filt Rate - Afr Amer 96 mL/min (>60); Glucose 107 mg/dL (74-106); High Density Lipoprotein 34 mg/dL; PSA,Total- Diagnostic 0.14 ng/mL (0.0-4.0); Potassium 4.2 mmol/L (3.5-5.1); Sodium Level 141 mmol/L (136-145); Triglycerides 135 mg/dL; Very Low Density Lipoprotein 27 mg/dL (5-40)
== END | disposition home or self-care (01) ==
LOC: MTLAB 08:48
PROVIDERS: PCP Family Medicine; Referring Provider Family Medicine; Visit Provider Family Medicine
DX: R00.2 Palpitations (principal); N40.0 Benign prostatic hyperplasia without lower urinary tract symptoms; E78.5 Hyperlipidemia, unspecified
CPT/HCPCS: 36415; 80048; 80061; 84153

== ENCOUNTER → 2025-01-31 | Outpatient (CLI) | payer MEDICARE, OTHER, SELFPAY ==
[2025-01-31 12:55] LABS: PSA,Total - Annual Screen 0.14 ng/mL (0.02-4.00)
== END | disposition home or self-care (01) ==
LOC: LAB 11:14
PROVIDERS: PCP Family Medicine; Referring Provider Urology; Visit Provider Urology
DX: Z12.5 Encounter for screening for malignant neoplasm of prostate (principal)
CPT/HCPCS: 36415; 84153; G0103